=== PATIENT | female | born 1990 | race Caucasian/White ===

== ENCOUNTER 2021-12-28 05:37 | Emergency (ER) | payer MEDICAID, OTHER ==
[~2021-12-28] VITALS: Ht 165.1 cm; Wt 56.8 kg
[~2021-12-28 05:37] MED LIST: PENI500T2 PO
[2021-12-28 05:52] VITALS: BP 113/64
[2021-12-28 07:21] LABS: APPEARANCE,URINE TURBID (CLEAR); BILIRUBIN,URINE NEGATIVE (NEGATIVE); GLUCOSE, URINE (UA) NEGATIVE (NEGATIVE); KETONES,URINE NEGATIVE (NEGATIVE); LEUKOCYTE ESTERASE ,URINE LARGE (NEGATIVE); NITRATE,URINE NEGATIVE (NEGATIVE); OCCULT BLOOD,URINE MODERATE (NEGATIVE); PROTEIN,URINE 30-70 mg/dL (NEGATIVE); SPECIFIC GRAVITIY, URINE 1.016 (1.003-1.030); UROBILINOGEN,URINE <=1.0 mg/dL (<=1.0)
[2021-12-28 08:00] LABS: BACTERIA,URINE Many /HPF (None Seen); SQUAMOUS EPITHELIAL CELL,UR Moderate /LPF (None Seen); WBC,URINE >100 /HPF (0-5)
== END 2021-12-28 07:25 | disposition left against medical advice (07) ==
LOC: EMS 05:38
DX: Z53.21 Procedure and treatment not carried out due to patient leaving prior to being seen by health care provider (principal)
CPT/HCPCS: 81001; 84703; 87086; 87077

== ENCOUNTER 2023-02-11 10:43 | Emergency (ER) | payer OTHER ==
[~2023-02-11] VITALS: Ht 170.2 cm; Wt 61.4 kg
[2023-02-11 10:48] VITALS: BP 125/76; PULSE 67; RESP 18
== END 2023-02-11 12:35 | disposition left against medical advice (07) ==
LOC: EMS 10:43
DX: R07.89 Other chest pain (principal); Z53.21 Procedure and treatment not carried out due to patient leaving prior to being seen by health care provider
CPT/HCPCS: 93005; 99281; Z7502

== ENCOUNTER 2023-07-18 22:59 | Emergency (ER) | payer OTHER ==
[~2023-07-18] VITALS: Ht 165.1 cm; Wt 61.0 kg
[2023-07-18 23:40] LABS: COVID AG,FIA SOURCE NASAL SWAB
[2023-07-18 23:57] LABS: SARS-COV2 (COVID) ANTIGEN,FIA Negative (Negative)
[2023-07-19 06:03] VITALS: TEMP 98.2
[2023-07-19 06:09] VITALS: BP 104/59; PULSE 70; RESP 18
[2023-07-24] MEDS ORDERED: OLAN10TA74 PO (18:11)
[2023-07-24] MEDS ORDERED: DIVA-112 PO (18:11)
== END 2023-07-19 07:06 | disposition short-term general hospital (02) ==
LOC: EMS 22:59
DX: R30.9 Painful micturition, unspecified (principal); F17.210 Nicotine dependence, cigarettes, uncomplicated; F15.90 Other stimulant use, unspecified, uncomplicated; Z04.6 Encounter for general psychiatric examination, requested by authority; Z20.822 Contact with and (suspected) exposure to COVID-19
CPT/HCPCS: 99285; Z7502